=== PATIENT | male | born 1950 | race Caucasian/White ===

== ENCOUNTER → 2019-07-07 | Outpatient (CLI) | payer MEDICARE ==
[~2019-07-07] MED LIST: REGADENOSON 0.4 MG/5 ML DISP.SYRIN. IV ONE
--- NOTE | 2019-07-09 09:36 | PCVCIMAG ---
APPROVED REPORT Study performed: 07/07/2019 08:07:23 EXAM: Comprehensive 2D, Doppler, and color-flow Echocardiogram Patient Location: Echo lab Status: routine BSA: 2.17 HR: 57 bpmBP: 124/80 mmHg Rhythm: NSR Other Information Study Quality: Good Risk Factors: Cardiac Risk Factors: HTN, Hyperlipidemia Indications Elevated calcium score, pre op shoulder surgery 2D Dimensions IVSd: 11.88 (7-11mm)LVOT Diam: 22.65 (18-24mm) LVDd: 30.80 mm PWd: 12.59 (7-11mm)Ascending Ao: 34.90 (22-36mm) LVDs: 24.63 (25-40mm) Left Atrium: 37.77 (27-40mm) Aortic Root: 29.86 mm LV Single Plane 4CH: 70.94 % LV Single Plane 2CH: 61.18 % Volumes Left Atrial Volume (Systole) Single Plane 4CH: 38.19 mLSingle Plane 2CH: 51.11 mL LA ESV Index: 21.00 mL/m2 Aortic Valve AoV Peak David.: 1.53 m/s AO Peak Gr.: 9.34 mmHgLVOT Max P.33 mmHg LVOT Max V: 1.15 m/s NIMO Vmax: 3.04 cm2 Mitral Valve E/A Ratio: 0.8 MV Decel. Time: 249.40 ms MV E Max David.: 0.68 m/s MV A David.: 0.86 m/s TDI E/Lateral E': 8.50E/Medial E': 8.50 Medial E' David.: 0.08 m/s Lateral E' David.: 0.08 m/s Pulmonary Vein P Vein S: 0.48 m/sP Vein A: 0.39 m/s P Vein D: 0.40 m/sP Vein A Dur.: 152.2 msec P Vein S/D Ratio: 1.20 Left Ventricle The left ventricle is normal size. There is normal LV segmental wall motion. There is normal left ventricular wall thickness. Left ventricular systolic function is normal. The left ventricular ejection fraction is within the normal range. LVEF is 60-65%. Right Ventricle The right ventricle is normal size. The right ventricular systolic function is normal. Atria The left atrium size is normal. The right atrium size is normal. Aortic Valve The aortic valve is normal in structure. No aortic regurgitation is present. There is no aortic valvular stenosis. Mitral Valve The mitral valve is normal in structure. Trace mitral regurgitation. No evidence of mitral valve stenosis. Tricuspid Valve The tricuspid valve is normal in structure. Trace tricuspid regurgitation. Pulmonic Valve The pulmonary valve is normal in structure. There is no pulmonic valvular regurgitation. Great Vessels The aortic root is normal in size. IVC is normal in size and collapses >50% with inspiration. Pericardium There is no pericardial effusion. <Conclusion> The left ventricle is normal size. LVEF is 60-65%. The aortic valve is normal in structure. The mitral valve is normal in structure. Trace mitral regurgitation. The tricuspid valve is normal in structure. Trace tricuspid regurgitation. The pulmonary valve is normal in structure. There is no pericardial effusion.
--- NOTE | 2019-07-09 22:50 | PCVCIMAG ---
APPROVED REPORT Imaging Protocol: Rest Tc-99m/Stress Tc-99m 1 day Study performed: 07/07/2019 09:43:11 Indication: CAD, CHRISTIE, Pre-Op Patient Location: Out-Patient Stress Nurse: Rmia Gross RN, Kelsi Wilson RN AL Tech:TAMMI RuizMT Ht: 5 ft 11 in Wt: 215 lbs BSA: 2.17 m2 HR: 54 bpm BP: 163/79 mmHg BMI: 29.9 Rhythm: Sinus Bradycardia, T-Wave Abnormality Medical History Medical History: Age, HLP, Former Tobacco User Medications: Tricor, Metoprolol, Warfarin Allergies: Tramadol Resting Data Rest SPECT myocardial perfusion imaging was performed in supine position 45 minutes following the intravenous injection of 11.0 mCi of Tc-99m Sestamibi. Time of rest injection: 0840 Date: 07/07/2019 Administration Route: IV Administration Site: Left AC Pharmacologic Stress Pharmacologic stress test was performed by injecting Regadenoson 0.4 mg IV push over 10-15 seconds immediately followed by the intravenous injection of 30.9 mCi of Tc-99m Sestamibi. Time of stress injection: 1015 Date: 07/07/2019 Administration Route: IV Administration Site: Left AC Gated Stress SPECT was performed 45 minutes after stress injection. The images were gated to evaluate regional wall motion and calculate left ventricular ejection fraction. Stress Test Details Stress Test: Pharmacologic stress testing performed using 0.4 mg of regadenoson per 5 mL given IV over 10 seconds. Reason for pharmacologic stress test: physical limitations. HRMax Heart Rate (APMHR): 149 bpm Resting HR: 54 bpmTarget HR (85% APMHR): 126 bpm Max HR Achieved: 80 bpm % of APMHR: 53 Recovery HR: 73 bpm BP Resting BP: 163/79 mmHg Max BP: 132/66 mmHg Recovery BP: 155/72 mmHg ECG Resting ECG: Sinus Bradycardia, T-Wave Abnormality Stress ECG: Sinus Rhythm, T-Wave Abnormality Arrhythmia: VPC's Recovery ECG: Sinus Rhythm, T-Wave Abnormality Clinical Reason for Termination: Completed protocol Stress Symptoms: Dyspnea Symptoms resolved with caffeine. Stress ECG Conclusion 1. Adequate response intravenous Lexiscan 2. Inadequate heart rate for ECG diagnosis Study Data Post stress, the left ventricular ejection was 75%.. SSS: 1 SRS: 0 SDS: 1 TID = 0.94. Perfusion There is a large area of severely reduced uptake in the entire segment of the inferior wall which is seen on the stress images as well as the resting images. This area thickens and moves normally and is most consistent with attenuation artifact. Wall Motion Normal left ventricular wall motion. Nuclear Conclusion ECG Findings: non-diagnostic Clinical Findings: negative for ischemia Nuclear Findings: negative for ischemia Exercise Capacity: not assessed Left Ventricular Function: normal 1. Low risk study 2. Post exercise left ventricular ejection fraction 75% with normal contractility Interpreted by: Ramu Bunch MD Electronically Approved: 07/09/2019 22:50:31 <Conclusion> 1. Adequate response intravenous Lexiscan 2. Inadequate heart rate for ECG diagnosis
== END ==
LOC: PCVCIMAG 09:15
PROVIDERS: ATTEND Internal Medicine
DX: R93.1 Abnormal findings on diagnostic imaging of heart and coronary circulation (principal); R06.09 Other forms of dyspnea; I25.10 Atherosclerotic heart disease of native coronary artery without angina pectoris; Z87.891 Personal history of nicotine dependence
CPT/HCPCS: 78452; 93017; 93306; A9500; J2785